=== PATIENT | female | born 1950 | race Caucasian/White ===

== ENCOUNTER 2018-02-22 12:51 | Outpatient (CLI) | payer MEDICARE ==
--- NOTE | 2018-02-23 08:53 | ULT ---
RENAL ULTRASOUND: Date: 02-22-18 Provided Clinical History: Benign neoplasm of left kidney. Comparison: 09-04-16 FINDINGS: The right kidney measures approximately 10.6 x 4.5 x 5 cm and demonstrates no evidence for hydronephr osis or mass. Left kidney measures about 7.4 x 5.9 x 5.7 cm and demonstrates no evidence for hydronephrosis. 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 The urinary bladder appears sonographically unremarkable. IMPRESSION: Stable appearing kidneys. POS: [facility]
== END 2018-02-22 12:52 | disposition home or self-care (01) ==
LOC: BICULT 12:51
PROVIDERS: ATTEND Urology
DX: D30.02 Benign neoplasm of left kidney (principal); Q61.01 Congenital single renal cyst
CPT/HCPCS: 76770

== ENCOUNTER 2018-03-28 14:55 | Outpatient (CLI) | payer MEDICARE | END 2018-03-28 14:56 | disposition home or self-care (01) | LOC: BICMAMMO 14:55 | PROVIDERS: ATTEND Internal Medicine Hematology & Oncology | DX: Z12.31 Encounter for screening mammogram for malignant neoplasm of breast (principal); R92.1 Mammographic calcification found on diagnostic imaging of breast; Z80.3 Family history of malignant neoplasm of breast; Z85.3 Personal history of malignant neoplasm of breast | CPT/HCPCS: 77063; 77067 ==

== ENCOUNTER 2019-03-30 09:22 | Outpatient (CLI) | payer MEDICARE ==
--- NOTE | 2019-03-30 10:17 | BD ---
DEXA BONE DENSITY: HISTORY: Screening study. Postmenopausal female. COMPARISON: 06/21/2015. FINDINGS: Lumbar Spine: BMD (g/cm2) L1 0.948 T-Score: -0.4 1.5 L2 1.142 T-Score: 1.0 3.1 L3 1.276 T-Score: 1.7 4.0 L4 1.354 T-Score: 2.7 5.0 L1-L4 1.202 T-Score: 1.4 3.6 06/21/2015: 1.181, 1.2 BMD change versus baseline: + 19.1%. BMD change versus previous: + 1.7%. Femoral Neck: 0.686 T-Score: -1.5 0.4 Total Femur: 0.829 T-Score: -0.9 0.6 06/21/2015: 0.784, -1.3. BMD change versus baseline: -13.5% BMD change versus previous: +5.8%. Impression: Lumbar spine: WHO classification is normal. Fracture risk is not increased. Femoral neck: WHO classification osteopenia. Ten-year fracture risk: Major osteoporotic fracture 15%; hip fracture 2%. POS: OFF
--- NOTE | 2019-03-30 10:53 | MMO ---
Bilateral MAMMO Bilat Screen [facility]. CLINICAL HISTORY: Patient is 68 years old and is seen for screening. 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 VIEWS: The views performed were: right craniocaudal with tomosynthesis and right mediolateral oblique with tomosynthesis. FILMS COMPARED: The present examination has been compared to prior imaging studies performed at [facility] on 03/20/2015, 03/23/2016, 03/24/2017 and 03/28/2018. This study has been interpreted with the assistance of computer-aided detection. MAMMOGRAM FINDINGS: The breast is heterogeneously dense, which could obscure a lesion on mammography. There are stable benign appearing calcifications seen in the right breast. There are no suspicious masses, suspicious calcifications, or new areas of architectural distortion. IMPRESSION: THERE IS NO MAMMOGRAPHIC EVIDENCE OF MALIGNANCY. A ROUTINE FOLLOW-UP MAMMOGRAM IN 1 YEAR IS RECOMMENDED. THE RESULTS OF THIS EXAM WERE SENT TO THE PATIENT. ACR BI-RADS Category 2 - Benign finding MAMMOGRAPHY NOTE: 1. A negative mammogram report should not delay a biopsy if a dominant of clinically suspicious mass is present. 2. Approximately 10% to 15% of breast cancers are not detected by mammography. 3. Adenosis and dense breasts may obscure an underlying neoplasm. Reported by: SHABNAM TOLBERT MD Electonically Signed: [id number]
== END 2019-03-30 09:23 | disposition home or self-care (01) ==
LOC: BICMAMMO 09:22
PROVIDERS: ATTEND Internal Medicine Hematology & Oncology
DX: Z12.31 Encounter for screening mammogram for malignant neoplasm of breast (principal); Z13.820 Encounter for screening for osteoporosis; Z78.0 Asymptomatic menopausal state; Z90.12 Acquired absence of left breast and nipple; M85.859 Other specified disorders of bone density and structure, unspecified thigh
CPT/HCPCS: 77063; 77067; 77080

== ENCOUNTER 2020-04-11 09:24 | Outpatient (CLI) | payer MEDICARE ==
--- NOTE | 2020-04-11 10:04 | MMO ---
Bilateral MAMMO Bilat Screen [facility]. CLINICAL HISTORY: Patient is 69 years old and is seen for screening. The patient has the following family history of breast cancer: paternal grandmother. The patient has a history of Skin cancer. 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 VIEWS: The views performed were: right craniocaudal with tomosynthesis and right mediolateral oblique with tomosynthesis. FILMS COMPARED: The present examination has been compared to prior imaging studies performed at [facility] on 03/23/2016, 03/24/2017, 03/28/2018 and 03/30/2019. This study has been interpreted with the assistance of computer-aided detection. MAMMOGRAM FINDINGS: The breast is heterogeneously dense, which could obscure a lesion on mammography. There are stable benign appearing calcifications seen in the right breast. There are no suspicious masses, suspicious calcifications, or new areas of architectural distortion. IMPRESSION: THERE IS NO MAMMOGRAPHIC EVIDENCE OF MALIGNANCY. A ROUTINE FOLLOW-UP MAMMOGRAM IN 1 YEAR IS RECOMMENDED. THE RESULTS OF THIS EXAM WERE SENT TO THE PATIENT. ACR BI-RADS Category 2 - Benign finding MAMMOGRAPHY NOTE: 1. A negative mammogram report should not delay a biopsy if a dominant of clinically suspicious mass is present. 2. Approximately 10% to 15% of breast cancers are not detected by mammography. 3. Adenosis and dense breasts may obscure an underlying neoplasm. Reported by: SHABNAM TOLBERT MD Electonically Signed: [id number]
== END 2020-04-11 09:25 | disposition home or self-care (01) ==
LOC: BICMAMMO 09:24
PROVIDERS: ATTEND Internal Medicine Hematology & Oncology
DX: Z12.31 Encounter for screening mammogram for malignant neoplasm of breast (principal); Z90.12 Acquired absence of left breast and nipple; Z85.3 Personal history of malignant neoplasm of breast; Z85.828 Personal history of other malignant neoplasm of skin; Z80.3 Family history of malignant neoplasm of breast
CPT/HCPCS: 77063; 77067

== ENCOUNTER 2020-09-02 14:46 | Outpatient (CLI) | payer MEDICARE | END 2020-09-02 14:47 | disposition home or self-care (01) | LOC: BICULT 14:46 | PROVIDERS: ATTEND Urology | DX: D17.71 Benign lipomatous neoplasm of kidney (principal); R31.29 Other microscopic hematuria; N28.1 Cyst of kidney, acquired | CPT/HCPCS: 36415; 76770; 80048; 81001 ==

== ENCOUNTER 2021-04-15 13:58 | Outpatient (CLI) | payer MEDICARE | END 2021-04-15 13:59 | disposition home or self-care (01) | LOC: BICMAMMO 13:58 | PROVIDERS: ATTEND Internal Medicine Hematology & Oncology | DX: Z12.31 Encounter for screening mammogram for malignant neoplasm of breast (principal); Z80.3 Family history of malignant neoplasm of breast; Z85.3 Personal history of malignant neoplasm of breast; Z90.12 Acquired absence of left breast and nipple; Z85.820 Personal history of malignant melanoma of skin | CPT/HCPCS: 77063; 77067 ==

== ENCOUNTER 2022-01-23 09:46 | Outpatient (CLI) | payer MEDICARE | END 2022-01-23 09:47 | disposition home or self-care (01) | LOC: BICRAD 09:46 | PROVIDERS: ATTEND Internal Medicine | DX: M19.012 Primary osteoarthritis, left shoulder (principal) | CPT/HCPCS: 36415; 80053; 80061; 82306; 83036; 84439; 84443 ==

== ENCOUNTER 2022-01-28 15:20 | Outpatient (CLI) | payer MEDICARE | END 2022-01-28 15:21 | disposition home or self-care (01) | LOC: BICMAMMO 15:20 | PROVIDERS: ATTEND Internal Medicine | DX: Z13.820 Encounter for screening for osteoporosis (principal); Z78.0 Asymptomatic menopausal state | CPT/HCPCS: 77080 ==

== ENCOUNTER 2022-04-22 13:34 | Outpatient (CLI) | payer MEDICARE | END 2022-04-22 13:35 | disposition home or self-care (01) | LOC: BICMAMMO 13:34 | PROVIDERS: ATTEND Internal Medicine Hematology & Oncology | DX: Z12.31 Encounter for screening mammogram for malignant neoplasm of breast (principal); D50.9 Iron deficiency anemia, unspecified; Z98.82 Breast implant status; Z85.3 Personal history of malignant neoplasm of breast | CPT/HCPCS: 77063; 77067 ==

== ENCOUNTER 2023-05-12 12:59 | Outpatient (CLI) | payer MEDICARE | END 2023-05-12 13:00 | disposition home or self-care (01) | LOC: BICMAMMO 12:59 | PROVIDERS: ATTEND Internal Medicine Hematology & Oncology | DX: Z12.31 Encounter for screening mammogram for malignant neoplasm of breast (principal); Z80.3 Family history of malignant neoplasm of breast; Z85.828 Personal history of other malignant neoplasm of skin; Z90.12 Acquired absence of left breast and nipple | CPT/HCPCS: 77063; 77067 ==

== ENCOUNTER 2023-11-10 13:24 | Outpatient (CLI) | payer MEDICARE | END 2023-11-10 13:25 | disposition home or self-care (01) | LOC: BICCT 13:24 | PROVIDERS: ATTEND Urology | DX: D30.02 Benign neoplasm of left kidney (principal); N28.89 Other specified disorders of kidney and ureter; M79.89 Other specified soft tissue disorders; Z98.890 Other specified postprocedural states | CPT/HCPCS: 74170; 82565 ==

== ENCOUNTER 2023-11-23 15:17 | Outpatient (CLI) | payer MEDICARE | END 2023-11-23 15:18 | disposition home or self-care (01) | LOC: BICULT 15:17 | PROVIDERS: ATTEND Internal Medicine Hematology & Oncology | DX: J90 Pleural effusion, not elsewhere classified (principal); R22.2 Localized swelling, mass and lump, trunk ==

== ENCOUNTER → 2023-11-26 | Day surgery (SDC) | payer MEDICARE ==
[~2023-11-26] MED LIST: Lidocaine 1% w/Epinephrine 1:100K 20 ML VIAL ONE; Midazolam HCl 2 mg/2 ml Vial ONE; Sodium Bicarbonate 2.5 MEQ/5 ML SDV ONE; fentaNYL 50 mcg/mL 1 mL Vial ONE
[2023-11-26 08:48] LABS: #Basophils 0.04 10x3/uL (0.0-0.2); %Basophils 0.8 % (0.0-1.0); %Eosinophils 4.1 % (0.0-10.0); %Lymphocytes 26.7 % (21.0-51.0); %Monocytes 8.5 % (0.0-10.0); %Neutrophils 59.5 % (42.0-75.0); Hematocrit 40.2 % (36.0-47.0); Mean Corpuscular HGB CONC 32.3 g/dL (32.0-36.0); Mean Corpuscular Hemoglobin 32.2 pg (27.0-31.0); Mean Corpuscular Volume 99.5 fL (78.0-98.0); Mean Platelet Volume 8.8 fL (7.4-10.4); Platelet Count 187 10x3/uL (130-400); RBC Distribution Width 12.9 % (11.5-14.5); Red Blood Cell (RBC) Count 4.04 mill/uL (4.20-5.40)
[2023-11-26 09:10] LABS: INR-International Normal Ratio 0.9; Prothrombin Time 12.5 sec (12.0-14.7)
[2023-11-26 09:11] LABS: PTT 35.7 sec (22.9-36.1)
== END ==
LOC: CT 08:30
PROVIDERS: ATTEND Urology
PROC: 0TB07ZX Excision of Right Kidney, Via Natural or Artificial Opening, Diagnostic (ICD-10-PCS; principal; 2023-11-26)
DX: D30.01 Benign neoplasm of right kidney (principal); Z79.899 Other long term (current) drug therapy; Z88.8 Allergy status to other drugs, medicaments and biological substances; Z91.011 Allergy to milk products; Z91.040 Latex allergy status; Z88.5 Allergy status to narcotic agent
CPT/HCPCS: 50200; 77012; 85025; 85610; 85730; 88333; 88334; J2250; J3010; 36415; 88305; 99152; 99153

== ENCOUNTER 2024-03-01 14:01 | Outpatient (CLI) | payer MEDICARE | END 2024-03-01 14:02 | disposition home or self-care (01) | LOC: BICCT 14:01 | PROVIDERS: ATTEND Student in an Organized Health Care Education/Training Program | DX: T84.84XA Pain due to internal orthopedic prosthetic devices, implants and grafts, initial encounter (principal); M16.11 Unilateral primary osteoarthritis, right hip; Z96.611 Presence of right artificial shoulder joint ==

== ENCOUNTER 2024-03-23 07:59 | Outpatient (CLI) | payer MEDICARE | END 2024-03-23 08:00 | disposition home or self-care (01) | LOC: CT 07:59 | PROVIDERS: ATTEND Student in an Organized Health Care Education/Training Program | DX: T84.038A Mechanical loosening of other internal prosthetic joint, initial encounter (principal); D36.9 Benign neoplasm, unspecified site; Z96.619 Presence of unspecified artificial shoulder joint | CPT/HCPCS: 36415; 74170; 82565 ==

== ENCOUNTER 2024-05-15 15:19 | Outpatient (CLI) | payer MEDICARE | END 2024-05-15 15:20 | disposition home or self-care (01) | LOC: BICMAMMO 15:19 | PROVIDERS: ATTEND Internal Medicine | DX: Z78.0 Asymptomatic menopausal state (principal); M81.0 Age-related osteoporosis without current pathological fracture; M85.852 Other specified disorders of bone density and structure, left thigh | CPT/HCPCS: 77080 ==

== ENCOUNTER 2024-05-25 11:05 | Outpatient (CLI) | payer MEDICARE ==
[2024-05-25 13:02] LABS: #Basophils 0.03 10x3/uL (0.0-0.2); %Basophils 0.6 % (0.0-1.0); %Eosinophils 2.7 % (0.0-10.0); %Lymphocytes 23.9 % (21.0-51.0); %Monocytes 8.6 % (0.0-10.0); %Neutrophils 64.2 % (42.0-75.0); Hematocrit 39.1 % (36.0-47.0); Hemoglobin 12.7 g/dL (12.0-16.0); Mean Corpuscular HGB CONC 32.5 g/dL (32.0-36.0); Mean Corpuscular Hemoglobin 31.8 pg (27.0-31.0); Mean Corpuscular Volume 97.8 fL (78.0-98.0); Mean Platelet Volume 9.5 fL (7.4-10.4); Platelet Count 202 10x3/uL (130-400); RBC Distribution Width 12.8 % (11.5-14.5)
[2024-05-25 13:21] LABS: INR-International Normal Ratio 0.9; Prothrombin Time 12.2 sec (12.0-14.7)
[2024-05-25 13:30] LABS: Anion Gap 11 mmol/L (10-20); BUN (Urea Nitrogen) 15 mg/dL (9.8-20.1); Calc. Creatinine Clearance 0 mL/min (70-130); Calcium 9.9 mg/dL (7.8-10.44); Carbon Dioxide 27 mmol/L (23-31); Chloride 107 mmol/L (98-107); Estimated GFR 83; Glucose 82 mg/dL (83-110); Potassium 3.9 mmol/L (3.5-5.1); Sodium 141 mmol/L (136-145)
== END 2024-05-25 11:06 | disposition home or self-care (01) ==
LOC: LABBT 11:05
PROVIDERS: ATTEND Student in an Organized Health Care Education/Training Program
DX: Z01.812 Encounter for preprocedural laboratory examination (principal); T84.84XA Pain due to internal orthopedic prosthetic devices, implants and grafts, initial encounter; T84.030A Mechanical loosening of internal right hip prosthetic joint, initial encounter
CPT/HCPCS: 80048; 85025; 85610; 87081

== ENCOUNTER 2024-05-25 11:30 | Inpatient (IN) | payer MEDICARE ==
[2024-05-25 11:35] VITALS: BMI 29.7
[2024-06-01] MEDS ORDERED: Lidocaine 1% MPF 2 ML VIAL ONE (06:04)
[2024-06-01] MEDS ORDERED: Tranexamic Acid 1,000 MG/10 ML VIAL ONE (06:04)
[2024-06-01] MEDS ORDERED: Vancomycin (BATCH) 300 ML ONE (06:05)
[2024-06-01] MEDS ORDERED: Sodium Chloride 0.9% 100 ML ONE (06:05)
[2024-06-01] MEDS ORDERED: CEFAZOLIN 2 GM VIAL ONE (06:05)
[2024-06-01] MEDS ORDERED: Midazolam HCl 2 mg/2 ml Vial ONE (06:34)
[2024-06-01] MEDS ORDERED: fentaNYL PF 100 MCG/2 ML SYRINGE ONE ×2 (06:34→07:17)
[2024-06-01] MEDS ORDERED: PROPOFOL 20 ML ONE (07:17)
[2024-06-01] MEDS ORDERED: Rocuronium Bromide 10 MG/ML (10ML VIAL) ONE (07:25)
[2024-06-01] MEDS ORDERED: Promethazine HCl 25 MG/ML VIAL IM PRN (07:30)
[2024-06-01] MEDS ORDERED: Ondansetron PF 4 MG/2 ML Vial IVP PRN (07:30)
[2024-06-01] MEDS ORDERED: Ropivacaine 0.2% 550 ML 550 ML NERVE BLCK SCH (07:30)
[2024-06-01] MEDS ORDERED: fentaNYL 50 mcg/mL 1 mL Vial SLOW IVP PRN (07:30)
[2024-06-01] MEDS ORDERED: traMADol HCl 50 MG TAB PO PRN (07:30)
[2024-06-01] MEDS ORDERED: HYDROcodone/Acetaminophen 5/325 mg Tablet PO PRN ×2 (07:30)
[2024-06-01] MEDS ORDERED: ePHEDrine Sulfate 50 MG/10 ML VIAL ONE (07:42)
[2024-06-01] MEDS ORDERED: PHENYLEPHRINE-NS 100 MCG/ML 10 ML SYRINGE ONE ×2 (07:44→10:13)
[2024-06-01] MEDS ORDERED: Lidocaine 2% PF 5 ML VIAL ONE (09:29)
[2024-06-01] MEDS ORDERED: SUGAMMADEX SODIUM 200 MG/2 ML VIAL ONE ×2 (09:29→11:09)
[2024-06-01] MEDS ORDERED: Dexmedetomidine 200 MCG/2 ML VIAL ONE (09:29)
[2024-06-01] MEDS ORDERED: Ondansetron PF 4 MG/2 ML Vial ONE (09:35)
[2024-06-01] MEDS ORDERED: Ketorolac Tromethamine 30 MG (1 mL) VIAL ONE (09:35)
[2024-06-01] MEDS ORDERED: Dexamethasone 20 MG/5 ML VIAL ONE (09:35)
[2024-06-01] MEDS ORDERED: Vecuronium 10 MG VIAL ONE (10:08)
[2024-06-01] MEDS ORDERED: Lidocaine 1% (PF) 30 ML VIAL ONE (10:27)
[2024-06-01] MEDS ORDERED: Ropivacaine 0.5% HCl/PF (150 MG/30 ML VIAL) ONE (10:27)
[2024-06-01] MEDS ORDERED: Vancomycin 1 GM VIAL ONE (10:53)
[2024-06-01] MEDS: Ketorolac Tromethamine 30 MG (1 mL) VIAL IVP SCH (12:00)
[2024-06-01] MEDS: Acetaminophen 500 MG TAB PO SCH (12:00)
[2024-06-01] MEDS ORDERED: Acetaminophen 325 MG TAB PO SCH (12:01)
[2024-06-01] MEDS ORDERED: Methocarbamol 500 MG TAB PO PRN (12:01)
[2024-06-01] MEDS ORDERED: oxyCODONE 5 MG TAB PO PRN (12:01)
[2024-06-01] MEDS: CEFAZOLIN 2 GM in Sodium Chloride 0.9% 100 ML IVPB SCH (14:21)
[2024-06-01] MEDS: Vancomycin 1.5 GRAM/300 ML BAG 1.5 GM in Premix 1 BAG IVPB SCH (17:45)
[2024-06-01] MEDS: traMADol HCl 50 MG TAB PO PRN (17:48)
[2024-06-02 05:43] LABS: Hemoglobin 9.8 g/dL (12.0-16.0); Mean Corpuscular HGB CONC 32.7 g/dL (32.0-36.0); Mean Corpuscular Hemoglobin 31.8 pg (27.0-31.0); Mean Corpuscular Volume 97.4 fL (78.0-98.0); Mean Platelet Volume 9.5 fL (7.4-10.4); Platelet Count 170 10x3/uL (130-400); RBC Distribution Width 12.8 % (11.5-14.5); Red Blood Cell (RBC) Count 3.08 mill/uL (4.20-5.40)
[2024-06-02 06:14] LABS: Anion Gap 13 mmol/L (10-20); BUN (Urea Nitrogen) 17 mg/dL (9.8-20.1); Calc. Creatinine Clearance 78 mL/min (70-130); Calcium 8.5 mg/dL (7.8-10.44); Carbon Dioxide 25 mmol/L (23-31); Chloride 106 mmol/L (98-107); Estimated GFR 80; Glucose 118 mg/dL (83-110); Potassium 4.2 mmol/L (3.5-5.1); Sodium 140 mmol/L (136-145)
[2024-06-02 07:58] VITALS: BP 93/58; TEMP 98.2
[2024-06-02] MEDS: Doxycycline 100 MG CAP PO SCH (08:45)
[2024-06-02] MEDS: Sulfameth/Trimethoprim DS 800-160mg TAB PO SCH (08:45)
[2024-06-02] MEDS: Enoxaparin 30 MG (0.3 mL) SYRINGE SC SCH (08:46)
== END 2024-06-02 11:13 | disposition home or self-care (01) | DRG 517 ==
LOC: INTOOBSV 06-01 05:34 → SURG A 06-01 05:34 → EDSTATUS 06-01 11:30 → SURG A 06-01 12:57 → OBSVTOIN 06-01 15:27
PROVIDERS: ADMIT Student in an Organized Health Care Education/Training Program; ATTEND Student in an Organized Health Care Education/Training Program
PROC: 0RWJ0JZ Revision of Synthetic Substitute in Right Shoulder Joint, Open Approach (ICD-10-PCS; principal; 2024-06-01)
DX: T84.098A Other mechanical complication of other internal joint prosthesis, initial encounter (principal); Z91.040 Latex allergy status; Z88.8 Allergy status to other drugs, medicaments and biological substances; Z79.899 Other long term (current) drug therapy
CPT/HCPCS: 36415; 80048; 85027; 87070; 87205; 88305; 88331; 96365; A4306; C1713; C1776; C1889; G0378; G0379; J1100; J1650; J1885; J2250; J2405; J2704; J2795; J3370

== ENCOUNTER 2025-04-03 13:47 | Outpatient (CLI) | payer MEDICARE | END 2025-04-03 13:48 | disposition home or self-care (01) | LOC: BICMAMMO 13:47 | PROVIDERS: ATTEND Internal Medicine Hematology & Oncology | DX: Z12.31 Encounter for screening mammogram for malignant neoplasm of breast (principal); N64.89 Other specified disorders of breast; Z80.3 Family history of malignant neoplasm of breast; Z85.828 Personal history of other malignant neoplasm of skin; Z90.12 Acquired absence of left breast and nipple; Z86.000 Personal history of in-situ neoplasm of breast | CPT/HCPCS: 77063; 77067 ==

== ENCOUNTER 2025-04-11 14:04 | Outpatient (CLI) | payer MEDICARE ==
[~2025-04-11 14:04] MED LIST changes: +Iopamidol 370 76% 100 ML VIAL ONE; -Lidocaine 1% w/Epinephrine 1:100K 20 ML VIAL ONE; -Midazolam HCl 2 mg/2 ml Vial ONE; -Sodium Bicarbonate 2.5 MEQ/5 ML SDV ONE; -fentaNYL 50 mcg/mL 1 mL Vial ONE
== END 2025-04-11 14:05 | disposition home or self-care (01) ==
LOC: CT 14:04
PROVIDERS: ATTEND Urology
DX: D17.71 Benign lipomatous neoplasm of kidney (principal); N28.89 Other specified disorders of kidney and ureter; N28.1 Cyst of kidney, acquired; N20.0 Calculus of kidney
CPT/HCPCS: 74170

== ENCOUNTER 2025-04-17 15:05 | Outpatient (CLI) | payer MEDICARE ==
[2025-04-17 16:37] LABS: #Basophils 0.04 10x3/uL (0.0-0.2); #Eosinophils 0.15 10x3/uL (0.0-0.7); #Monocytes 0.53 10x3/uL (0.11-0.59); #Neutrophils 3.45 10x3/uL (1.40-6.50); %Basophils 0.7 % (0.0-1.0); %Eosinophils 2.5 % (0.0-10.0); %Lymphocytes 31.6 % (21.0-51.0); %Monocytes 8.7 % (0.0-10.0); %Neutrophils 56.3 % (42.0-75.0); Hematocrit 40.6 % (36.0-47.0); Hemoglobin 12.8 g/dL (12.0-16.0); Mean Corpuscular Hemoglobin 30.4 pg (27.0-31.0); Mean Corpuscular Volume 96.4 fL (78.0-98.0); Platelet Count 216 10x3/uL (130-400); Red Blood Cell (RBC) Count 4.21 mill/uL (4.20-5.40); White Blood Cell (WBC) Count 6.11 10x3/uL (4.8-10.8)
[2025-04-17 16:51] LABS: INR-International Normal Ratio 1.0; PTT 35.5 sec (22.9-36.1); Prothrombin Time 12.9 sec (12.0-14.7)
[2025-04-17 16:52] LABS: Anion Gap 12 mmol/L (10-20); BUN (Urea Nitrogen) 13 mg/dL (9.8-20.1); Calc. Creatinine Clearance 0 mL/min (70-130); Calcium 9.9 mg/dL (7.8-10.44); Carbon Dioxide 28 mmol/L (23-31); Chloride 101 mmol/L (98-107); Glucose 71 mg/dL (83-110); Potassium 3.6 mmol/L (3.5-5.1); Sodium 137 mmol/L (136-145)
== END 2025-04-17 15:06 | disposition home or self-care (01) ==
LOC: LABBT 15:05
PROVIDERS: ATTEND Urology
DX: Z01.818 Encounter for other preprocedural examination (principal); N20.0 Calculus of kidney
CPT/HCPCS: 80048; 85025; 85610; 85730; 93005; 93010

== ENCOUNTER 2025-04-23 06:13 | Day surgery (SDC) | payer MEDICARE ==
[2025-04-17 15:26] VITALS: BMI 30.9
[2025-04-23] MEDS ORDERED: fentaNYL PF 100 MCG/2 ML SYRINGE ONE (06:55)
[2025-04-23] MEDS ORDERED: Rocuronium Bromide 10 MG/ML (10ML VIAL) ONE ×2 (06:55→07:41)
[2025-04-23] MEDS ORDERED: PROPOFOL 20 ML ONE (06:55)
[2025-04-23] MEDS ORDERED: LevoFLOXacin D5W 500 mg (100 mL) BAG ONE (07:01)
[2025-04-23] MEDS ORDERED: PHENYLEPHRINE-NS 100 MCG/ML 10 ML SYRINGE ONE ×2 (07:41→07:58)
[2025-04-23] MEDS ORDERED: PROPOFOL 200 MG/20 ML VIAL ONE (07:41)
[2025-04-23] MEDS ORDERED: Ketorolac Tromethamine 30 MG (1 mL) VIAL ONE ×2 (07:41→08:18)
[2025-04-23] MEDS ORDERED: Ondansetron PF 4 MG/2 ML Vial ONE (07:47)
[2025-04-23] MEDS ORDERED: SUGAMMADEX SODIUM 200 MG/2 ML VIAL ONE (08:06)
[2025-04-23] MEDS ORDERED: Oxybutynin 5 MG TAB ONE (08:48)
== END 2025-04-23 11:15 | disposition home or self-care (01) ==
LOC: SDC 06:13
PROVIDERS: ATTEND Urology
PROC: 0TC08ZZ Extirpation of Matter from Right Kidney, Via Natural or Artificial Opening Endoscopic (ICD-10-PCS; principal; 2025-04-23)
PROC: 0T768DZ Dilation of Right Ureter with Intraluminal Device, Via Natural or Artificial Opening Endoscopic (ICD-10-PCS; 2025-04-23)
DX: N20.0 Calculus of kidney (principal); D17.71 Benign lipomatous neoplasm of kidney; Z85.3 Personal history of malignant neoplasm of breast; Z85.828 Personal history of other malignant neoplasm of skin; Z96.611 Presence of right artificial shoulder joint; Z96.653 Presence of artificial knee joint, bilateral; Z90.12 Acquired absence of left breast and nipple; Z90.89 Acquired absence of other organs; Z90.49 Acquired absence of other specified parts of digestive tract; Z98.890 Other specified postprocedural states; Z91.040 Latex allergy status; Z88.5 Allergy status to narcotic agent; Z91.0110 Allergy to milk products, unspecified; Z91.048 Other nonmedicinal substance allergy status
CPT/HCPCS: 74420; 82365; C1747; C1758; C1769 ×2; C2617; C9761; J1100; J1885; J1956; J2405; J2704; J3010; Q9967; 88300